=== PATIENT | male | born 1940 | race African-American/Black ===

== ENCOUNTER → 2018-06-30 | Outpatient (CLI) | payer OTHER ==
[~2018-06-30] MED LIST: AMARYL4 MG PO; CARDURA8 MG PO; CIPRO500 MG PO; DUTOPROL 50-121 EACH PO; GLUCOPHAGE1000 MG PO; KLOR-CON 10 ER10 MEQ PO; LANTUS SQ; LISINOPRIL10 MG PO; LOTREL 10-20 M1 EACH PO; LUMIGAN2.5 M1; METOPROLOL SUCC50 MG PO; PRAVACHOL40 MG PO; ZOCOR40 MG PO
== END ==
LOC: RAD 14:16
DX: J98.11 Atelectasis (principal); I25.10 Atherosclerotic heart disease of native coronary artery without angina pectoris

== ENCOUNTER 2018-07-16 22:18 | Inpatient (IN) | payer OTHER ==
[~2018-07-16] VITALS: Ht 182.9 cm; Wt 90.3 kg
--- NOTE | ~2018-07-16 | HC ---
[facility] [place] [address] CONSULTATION Name: JAMESADALBERTO Rocio Room #: 239-P [facility] IN ..#: [id number] Admission: 07/17/18 ������������������ Attend Phys: Karrie Steward MD Discharge: ������������������ Date of : 40 Report #: [id number] THIS REPORT FOR: //name// CC: Jet Steward DATE OF SERVICE: 07/17/2018 INPATIENT CONSULTATION CHIEF COMPLAINT: Shortness of breath. HISTORY OF PRESENT ILLNESS: The patient is a 77-year-old male followed by Dr. Archibald in our practice. He has a history of chronic coronary artery disease. He has not been having chest pain, but rather has been short of breath. He presented to the Emergency Room. His oxygen level was stable, but he was placed on O2 per nasal cannula. Chest x-ray showed no CHF, but there is a right pleural effusion. He denies palpitations or heart racing. He has separate complaints of weakness and fatigue. He is without orthopnea or PND. He denies syncope or presyncope. Vital signs are stable and he was admitted for further evaluation of his symptoms of shortness of breath. This morning, he is asymptomatic, vital signs are stable. PAST MEDICAL HISTORY: He has a history of chronically occluded right coronary artery based on a cardiac catheterization in 2011 and has been on medical management. He has hypertension, hyperlipidemia and diabetes. HOME MEDICATIONS: Glimepiride, pravastatin 40 mg daily, Toprol-XL 100 mg daily, lisinopril 10 mg daily, finasteride 5 mg daily, chlorthalidone 25 mg daily, potassium chloride 10 mEq daily, amlodipine and benazepril 10/20 mg daily, doxazosin 1 mg at bedtime, metformin 1 g b.i.d. and insulin. SOCIAL HISTORY: He is . There is no tobacco use. FAMILY HISTORY: Positive for heart disease. REVIEW OF SYSTEMS: EYES: Denies any blurred vision or loss of vision. [facility] [address] [place] [address] CONSULTATION Name: ADALBERTO RAMIREZ Room #: 239-P [facility] IN [facility].#: [id number] Admission: 07/17/18 ������������������ Attend Phys: Karrie Steward MD Discharge: ������������������ Date of : 40 Report #: [id number] THROAT: Denies any dysphagia. GASTROINTESTINAL: No nausea or vomiting. HEMATOLOGIC: No anemia or bleeding disorders. RENAL: No history of kidney failure. ENDOCRINE: Positive diabetes. Positive hyperlipidemia. CARDIOVASCULAR: No chest pain. Positive shortness of breath. Positive dyspnea with exertion. No orthopnea, no PND. MUSCULOSKELETAL: Positive edema. SKIN: No rashes. MUSCULOSKELETAL: No falls. PHYSICAL EXAMINATION: VITAL SIGNS: Blood pressure 134/74, pulse 73, O2 sats 97% on 2 liters, he is afebrile at 36.6. GENERAL: This is an elderly male. He is alert, in no apparent distress. HEENT: Eyes, EOMs intact. No facial asymmetry. NECK: Supple, no jugular venous distention. CARDIOVASCULAR: Regular. I cannot hear a murmur. LUNGS: Diminished breath sounds bilaterally. ABDOMEN: Soft, nontender. EXTREMITIES: There is no peripheral edema. NEUROLOGIC: There are no focal deficits. SKIN: Warm and dry. PSYCHIATRIC: The patient has appropriate mood and affect. Electrocardiogram shows sinus rhythm, normal ST segments. LABORATORY DATA: Hemoglobin is 12.8, white blood cell count is 3.3, platelet count is 15.5 thousand. D-dimer is 1.07. IMPRESSION: 1. Shortness of breath. I would rule out a pulmonary embolus with either CTA or V/Q scan. 2. Pleural effusion. I would consider him to see if this layers out or possibly could be tapped. He does not seem to be responding to diuretics. He has a normal BNP. We will check an echocardiogram to assess left ventricular function. 3. Coronary artery disease. This does not seem to be playing a role. He is asymptomatic for angina type symptoms. His troponin is normal. 4. Chronic occlusion. 5. Hypertension. Continue with aggressive medical therapy. ��������������������������������������������� ���������������������������������������� By: ��������������������������������������������� [id number] Charlie Regalado MD, FACC /nt
[2018-07-16 22:29] VITALS: BP 171/70
[2018-07-16] MEDS ORDERED: PROSCAR 5MG TABL5 MG PO (22:35)
[2018-07-16] MEDS ORDERED: CHLORTHALIDONE25 MG PO (22:36)
[2018-07-16] MEDS ORDERED: TIMOLOL MA0.25 %/52 (22:39)
[2018-07-16 23:15] LABS: ABSOLUTE NEUTROPHILS 1.6 thou/uL (1.4-8.2); BASOPHILS 0.9 % (0.0-2.0); EOSINOPHILS 2.3 % (0.0-3.0); HEMOGLOBIN 12.8 gm/dL (14.0-18.0); LYMPHOCYTES 35.4 % (24.0-44.0); MCH 24.1 pg (26.0-34.0); MCHC 32.7 g/dL (28.0-37.0); MCV 73.7 fL (80.0-100.0); MONOCYTES 11.1 % (1.0-8.0); PLATELET COUNT 204 thou/uL (150-400); POLYS 50.3 % (36.0-66.0); RBC 5.29 mil/uL (4.50-6.00); RDW 15.5 % (10.5-14.5); WBC 3.3 thou/uL (4.0-11.0)
[2018-07-16 23:22] LABS: ANION GAP 3 mmol/L (7-16); BUN 13 mg/dL (7-18); CALCIUM 9.5 mg/dL (8.5-10.1); CHLORIDE 90 mmol/L (98-107); CO2 38 mmol/L (21-32); CREATININE 0.8 mg/dL (0.7-1.3); GLUCOSE 138 mg/dL (74-106); POTASSIUM 3.2 mmol/L (3.5-5.1); SODIUM 131 mmol/L (136-145)
[2018-07-16 23:31] LABS: TROPONIN-I <0.06 ng/mL (<0.06)
[2018-07-17 06:23] VITALS: BP 120/95
[2018-07-17 07:28] VITALS: BP 134/74
[2018-07-17 08:01] VITALS: BP 152/86
--- NOTE | 2018-07-17 09:20 | EKG ---
[address] [place] [address] ELECTROCARDIOGRAM REPORT Name: ADALBERTO RAMIREZ Room #: 239-P ADM IN M.R.#: [id number] ������������������ Admission: 07/17/18 ������������������ Attend Phys: Karrie Steward MD Discharge: ������������������ Date of : 40 Report #: [id number] ����������������������������������������������������������������� [id number] THIS REPORT FOR: //name// [facility] ED Test Date: 2018-07-16 Test Time: 23:28:32 Pat Name: ADALBERTO RAMIREZ Department: Room: 239 Gender: M Reception Clerk: paulina : 1940 Requested By: Tyson Pruitt Order Number: [id number] MD: Rene Wyman Measurements Intervals Melvin Rate: 72 P: -7 FL: 213 QRS: -5 QRSD: 96 T: 21 QT: 401 QTc: 439 Interpretive Statements Sinus rhythm Borderline prolonged FL interval Left ventricular hypertrophy No previous ECG available for comparison Electronically Signed On 07-17-2018 9:20:48 [employer] by Rene Wyman [email or web address] ��������������������������������������������� <ELECTRONICALLY SIGNED> ���������������������������������������� By: Rene Wyman MD, [facility] ��������������������������������������������� 07/17/18 0920 2328 27 Rene Wyman MD, FACC /EPI
[2018-07-17 09:34] LABS: INR 1.1; PROTIME 11.1 Seconds (9.3-11.4)
--- NOTE | 2018-07-17 11:46 | NUR ---
PT OFF UNIT /C TRANSPORTERS FOR CT AND THORACENTESIS - DR. NIÑO GAVE OKAY TO BE OFF MONITORS FOR TESING
[2018-07-17 14:26] LABS: CLARITY SLIGHTLY CLOUDY; COLOR YELLOW; SOURCE CHEST; TOTAL VOLUME 1 mL
[2018-07-17 14:33] LABS: BF NUCLEATED CELLS 153; BF RBC 575
[2018-07-17 15:25] LABS: BF MACROPHAGE 20; BF NEUTROPHILS 0
[2018-07-17 20:01] VITALS: BP 141/75
[2018-07-18 00:01] VITALS: BP 147/54
--- NOTE | 2018-07-18 02:29 | NUR ---
ASSUMED CARE OF PATIENT AT 1900. VSS, AFEBRILE. UP TO CHAIR UNTIL READY FOR BED. NO S/S OF DISTRESS. AT BEDSIDE. PROGRESSING TOWARDS POC GOALS.
[2018-07-18 04:01] VITALS: BP 143/48
[2018-07-18 08:09] VITALS: BP 128/64
[2018-07-18 09:44] LABS: BODY FLUID ALBUMIN 2.1 g/dL (()); BODY FLUID AMYLASE 13 U/L (()); BODY FLUID GLUCOSE 158 mg/dL (()); BODY FLUID LDH 103 IU/L (()); BODY FLUID PROTEIN 3.2 g/dL (())
[2018-07-18] MEDS ORDERED: XALATAN2.5 ML OPHTHALMIC ×2 (10:09)
--- NOTE | 2018-07-18 12:52 | NUR ---
INITIAL ASSESSMENT: Received consult for discharge planning. KAMAR reviewed chart and spoke with nursing and attending physician. Pt was admitted from home due to pleural effusions. Pt is currenlty on O2 and was not on O2 prior to admission. Awaiting PT/OT evaluations at this time to assist with recommendations for discharge. Pt's had stated that pt may need rehab prior to returning home. KAMAR met with pt and son at bedside. Introduced role of SW. Pt is alert/orientated x 4. Pt reports that prior to admission, he was not using any DME. Pt has not had HH or been go a SNF/Rehab facility in the past. Pt has done outpatient therapy in the past, in [place]. Pt's PCP is Dr. Jet Gallagher in [place]. KAMAR discussed possible need for post-acute placement prior to returning home. Pt is agreeable. KAMAR provided pt/family with list of in-network SNFs. Pt interested in [facility], which is not on the list. KAMAR contacted [facility] liaison, who states they do not have a contract with [facility]. KAMAR spoke with pt's , Laura, via phone to provide update and discuss SNF placement. Pt's will be at the hospital this afternoon and will review SNF list. Will need insurance authorization for admission to a SNF. KAMAR is following to assist as needed with dicharge planning.
[2018-07-18 13:03] VITALS: BP 128/692
[2018-07-18 16:34] VITALS: BP 115/55
--- NOTE | 2018-07-18 16:38 | NUR ---
PT ALERT AND ORIENTED X4. AMBULATING IN HALLWAY WITH STANDBY ASSISTANCE, GAIT BELT, WALKER, AND O2. PT/OT CONSULT TODAY. PLAN FOR TRANSFER SOON TO SNF FOR REHAB. PT FAMILY PLANNING TO VISIT FACILITIES TOMORROW. CASE MANAGEMENT ASSISTING WITH DISCHARGE PLANNING. ORDER TO TRANSFER TO MED/SURG. REPORT CALLED TO [facility] RN. PT FAMILY AT BEDSIDE AND INFORMED OF TRANSFER PLANS.
--- NOTE | 2018-07-18 19:25 | NUR ---
PATIENT ARRIVED TO [facility] AT 1830, FROM ICU ROOM 239 TP ROOM 222.PATIENT WAS ORIENTED TO ROOM.PT WAS ABLE TO TRANSFER FROM W/C TO BED WITH STAND BY ASSIST WITH GAIT BELT AND WALKER.FAMILY IS AT BEDSIDE.VITALS ARE TAKEN.CALL LIGHT,PHONE, AND PERSONAL BELONGINGS ARE WITHIN REACH.
[2018-07-18 20:27] VITALS: BP 142/77
--- NOTE | 2018-07-19 07:42 | NUR ---
Pt A/OX4,denies pain on assessment but complaints of weakness. Up with AX1,GB/RW. VSS.On 02 @2L/NC,has ROMAN. No cough noted.Pt's IV was out of place,pt requested writter to dc it and not re-insert it since he's not getting any meds through it,FORMULATOR COMPOUNDER notified and ok with it. Pt sleeps on recliner,feet elevated.No distress noted.Call light/personal items within reach.
[2018-07-19 08:30] VITALS: BP 128/70
[2018-07-19 10:00] LABS: HEMATOCRIT 38.8 % (42.0-52.0); HEMOGLOBIN 12.3 gm/dL (14.0-18.0); MCH 23.8 pg (26.0-34.0); MCHC 31.7 g/dL (28.0-37.0); RBC 5.17 mil/uL (4.50-6.00); RDW 15.2 % (10.5-14.5); WBC 3.3 thou/uL (4.0-11.0)
[2018-07-19 10:09] LABS: CREATININE 0.9 mg/dL (0.7-1.3); MAGNESIUM 1.7 mg/dL (1.8-2.4); POTASSIUM 3.8 mmol/L (3.5-5.1)
[2018-07-19] MEDS ORDERED: IPRAT-ALBUT 0.5-3 ML INH (11:49)
--- NOTE | 2018-07-19 12:06 | NUR ---
SW reviewed chart and spoke with nursing and attending physician. Pt was moved to [facility] from ICU and is progressing towards goals for discharge. SW received message from pt's requesting referral to be sent to [facility]. SW spoke with Maranda at [facility], who states they do not have a male bed availbale, and do not anticipate a male bed until 07/25. SW spoke with pt's via phone to provide update. SW reviewed in-network SNF list with pt's . Pt's requested SW contact pt's dtr, Siria ([phone]) to discuss alternate SNFs. SW spoke with Siria via phone to provide update. Pt's dtr requested referral to be sent to [facility] for review. corporate planner faxed referral. Pt will need insurance authorization. Chart copy ordered. KAMAR is following to assist as needed with discharge planning.
--- NOTE | 2018-07-19 12:15 | NUR ---
DP sent initial referral to [facility], patient is medically ready, [facility] is seeking authorization, chart copy being ordered.
--- NOTE | 2018-07-19 19:16 | NUR ---
ASSUMED CARE OF PATIENT AT 0715, PATIENT ALERT AND ORIENTED X 4. PATIENT UP WITH ASSIST X 1 WITH WALKER. PATIENT DENIES PAIN THIS SHIFT. PATIENT HAS O2 AT 2 LITERS/NC IN PLACE. BLOOD SUGAR MONITORING ORDERED, INSULIN GIVEN PER S/S LOW DOSE. PATIENT WILL BE DISCHARGE TO [facility], TRANSPORTATION SETUP PER SRINIVAS AT 1730, NO TRANSPORTATION HERE AT 1900, THIS RN CALLED THE FACILITY TO ASK ABOUT TRANSPORTATION, PATIENT NOT ON LIST FOR PICKUP, SPOKE WITH THE NURSE AT THE FACILITY/SURESH, HE WILL CALL HIS MEDICAL RECEPTIONIST MEDICAL ASSISTANT TO CHECK, RECEIVED CALL BACK, TRANSPORT WILL BE HERE AT 2000. FAMILY INFORMED ABOUT DISCHARGE INFO. F/U APPOINTMENTS AFTER DISCHARGE, F/U WITH CARDIO/DR MOSES AND OWN DOCTOR IN 4 WEEKS. REPORT GIVEN TO SURESH AT [facility]. WILL CONTINUE TO MONITOR. DAUGHTER AND AT BEDSIDE.
[2018-07-19 20:19] VITALS: BP 158/76
--- NOTE | 2018-07-19 20:46 | NUR ---
Pt A/OX4,up with AX1. VSS.Temp 100.5 order obtained for Tylenol 650mg and administered before pt dc. Family at bedside. Pt discharged to [facility],transported via @2029. All personal items sent with pt. Report called earlier by Katelin to Hernandez at the facility.
== END 2018-07-19 20:30 | DRG 189 ==
LOC: ER 22:18 → ICU 07-17 01:14 → EROBS 07-17 01:14 → ICU 07-17 07:33 → ENTRNSPT 07-18 18:29 → SICU 07-18 18:58
PROVIDERS: Emergency Medicine; Internal Medicine; Internal Medicine Cardiovascular Disease; ADMIT Internal Medicine
PROC: 0W993ZZ Drainage of Right Pleural Cavity, Percutaneous Approach (ICD-10-PCS; principal; 2018-07-17)
DX: J96.01 Acute respiratory failure with hypoxia (principal); E43 Unspecified severe protein-calorie malnutrition; J90 Pleural effusion, not elsewhere classified; I10 Essential (primary) hypertension; E78.00 Pure hypercholesterolemia, unspecified; E87.6 Hypokalemia; R60.9 Edema, unspecified; I25.10 Atherosclerotic heart disease of native coronary artery without angina pectoris; E11.9 Type 2 diabetes mellitus without complications; Z87.891 Personal history of nicotine dependence; Z95.5 Presence of coronary angioplasty implant and graft; Z79.84 Long term (current) use of oral hypoglycemic drugs; Z79.4 Long term (current) use of insulin; Z82.49 Family history of ischemic heart disease and other diseases of the circulatory system
CPT/HCPCS: 10203; 15002

== ENCOUNTER 2018-08-08 15:18 | Inpatient (IN) | payer OTHER ==
[~2018-08-08] VITALS: Ht 180.3 cm; Wt 90.7 kg
[~2018-08-08 15:18] MED LIST changes: +CHLORTHALIDONE25 MG PO; +IPRAT-ALBUT 0.5-3 ML INH; +PROSCAR 5MG TABL5 MG PO; +TIMOLOL MA0.25 %/52; +XALATAN2.5 ML OPHTHALMIC
[2018-08-08 15:19] VITALS: BP 162/74
[2018-08-08 16:50] LABS: HEMATOCRIT 34.2 % (42.0-52.0); HEMOGLOBIN 11.2 gm/dL (14.0-18.0); MCH 24.3 pg (26.0-34.0); MCHC 32.8 g/dL (28.0-37.0); MCV 74.1 fL (80.0-100.0); PLATELET COUNT 160 thou/uL (150-400); RBC 4.62 mil/uL (4.50-6.00); RDW 15.4 % (10.5-14.5); WBC 2.8 thou/uL (4.0-11.0)
[2018-08-08 17:06] LABS: ANION GAP 4 mmol/L (7-16); BUN 9 mg/dL (7-18); CALCIUM 8.8 mg/dL (8.5-10.1); CHLORIDE 92 mmol/L (98-107); CO2 40 mmol/L (21-32); CREATININE 0.7 mg/dL (0.7-1.3); GLUCOSE 126 mg/dL (74-106); POTASSIUM 3.5 mmol/L (3.5-5.1); SODIUM 136 mmol/L (136-145)
[2018-08-08 17:14] LABS: TROPONIN-I <0.06 ng/mL (<0.06)
[2018-08-08 17:25] LABS: ABSOLUTE NEUTROPHILS 1.4 thou/uL (1.4-8.2); ANISOCYTOSIS 1+
[2018-08-08 17:51] VITALS: BP 161/72
[2018-08-08] MEDS ORDERED: ASPIR 8181 MG PO (17:55)
[2018-08-08] MEDS ORDERED: APAP650 PO (17:55)
[2018-08-08] MEDS ORDERED: PLAVIX 75 MG TA75 M1 PO (17:56)
[2018-08-08] MEDS ORDERED: MIRALAX17 GM PO (17:57)
[2018-08-08 18:00] VITALS: BP 165/82
[2018-08-08 18:46] VITALS: BP 168/77
[2018-08-09 00:09] VITALS: BP 186/96
[2018-08-09 04:34] VITALS: BP 156/86
[2018-08-09 06:20] LABS: ANION GAP 0 mmol/L (7-16); BUN 8 mg/dL (7-18); CALCIUM 8.5 mg/dL (8.5-10.1); CHLORIDE 92 mmol/L (98-107); CO2 43 mmol/L (21-32); CREATININE 0.8 mg/dL (0.7-1.3); GLUCOSE 153 mg/dL (74-106); POTASSIUM 3.1 mmol/L (3.5-5.1); SODIUM 135 mmol/L (136-145); TROPONIN-I <0.06 ng/mL (<0.06)
--- NOTE | 2018-08-09 06:43 | NUR ---
ASSUMED CARE OF PT WITH ADMISSION TO UNIT. PT ABLE TO ANSWER ADMISSION ASSMT QUESTIONS. SBP HAS BEEN RUNNING HIGH (150-180'S) OVER NOC, SPOKE TO SAP PP CONSULTANT, COREG GIVEN EARLY. OTHER MEDS ORDERED FOR TODAY. REQUESTED GLUCOSE LEVEL CHECKED SEVERAL TIMES OVER NOC, PROVIDED, RANGING FROM 110-130. C/O SOA, VS CHECKED, O2 SAT'S 95-100% ON 2L O2 VIA NC. REQUESTED REPOSITIONING SEVERAL TIMES TO HELP BREATHE, PROVIDED WITH PARTIAL RELIEF. PROGRESSING TOWARDS POC GOALS.
[2018-08-09 07:43] VITALS: BP 138/77
[2018-08-09 11:28] VITALS: BP 159/84
--- NOTE | 2018-08-09 13:40 | NUR ---
ASSESSMENT: CM REVIEWED CHART AND MET WITH PATIENT AT THE BEDSIDE. PT WAS ADMITTED WITH [facility]. PT HAD RECENT CVA AND WAS AT [facility]. PT REPORTS THAT HE LIVES AT HOME WITH HIS . PT REPORTS IF HE ENTERS THROUGH THE GARAGE (WHICH IS EASIEST FOR HIM) THEN HE HAS ABOUT 11 STEPS WITH HANDRAILS TO THE MAIN LEVEL. PT REPORTS IF HE ENTERS THROUGH THE FRONT DOOR HE HAS ABOUT 8 STEPS WITH HANDRAILS. PT REPORTS THAT HE AMBULATES USING A WALKER AND CANE. PT REPORTS HE WAS RECENTLY STARTED ON OXYGEN THROUGH [facility] AND IS ON 2L CONTINUOUS OXYGEN. PT REPORTS THAT HE HAS HH AND IS SET UP THROUGH [facility]. CM NOTIFIED [facility] THAT PATIENT WAS ADMITTED AND REQUESTED [facility] APPRENTICE TO SEND A REFERRAL TO [facility]. CM WILL CONTINUE TO FOLLOW TO ASSIST NEEDED. PT IS HOPEFUL TO RETURN HOME WITH HH ONCE STABLE.
--- NOTE | 2018-08-09 14:03 | NUR ---
dp faxed initial referral to [facility], patient was with service with them prior to hospitalization, patient will continue after dc.
[2018-08-09 16:41] VITALS: BP 180/87
--- NOTE | 2018-08-09 17:01 | EKG ---
[place] [address] [facility] [place] [address] ELECTROCARDIOGRAM REPORT Name: ADALBERTO RAMIREZ Room #: 354-P ADM IN M.R.#: [id number] ������������������ Admission: 08/08/18 ������������������ Attend Phys: Shubham Trivedi Discharge: ������������������ Date of : 40 Report #: [id number] ����������������������������������������������������������������� [id number] THIS REPORT FOR: //name// [facility] ED Test Date: 2018-08-08 Test Time: 16:42:48 Pat Name: ADALBERTO RAMIREZ Department: Room: 354 Gender: M Accounting Clerk: GERARDO : 1940 Requested By: Juan Alonzo Order Number: [id number] MD: Rene Wyman Measurements Intervals Cisco Rate: 68 P: -2 MN: 219 QRS: -1 QRSD: 82 T: 28 QT: 398 QTc: 424 Interpretive Statements Sinus rhythm Borderline prolonged MN interval Compared to ECG 07/16/2018 23:28:32 No significant changes Electronically Signed On 08-09-2018 17:01:50 CDT by Rene Wyman [email or web address] ��������������������������������������������� <ELECTRONICALLY SIGNED> ���������������������������������������� By: Rene Wyman MD, [facility] ��������������������������������������������� 08/09/18 1701 41 41 Rene Wyman MD, FAC /EPI
--- NOTE | 2018-08-09 20:24 | NUR ---
ASSUMED CARE OF PT AT APPROX 0700. PT IS ALERT AND ORIENTED X4, MONITORED ON TELE AND ABLE TO MAINTAIN 02 SAT >90 ON 2L NC. PT DOES COMPLAIN OF SOA. BREATHING LABORED AT TIMES. PT REQUESTS BIPAP DURING CTA HE STATES THAT HE CANNOT BREATH ONCE HE IS LAYING ON HIS BACK. CALLED RT TO SET UP BIPAP IN CTA. WAS ABLE TO PERFORM CTA. ASSESSMENT CHARTED. PT DENIES PAIN. VSS WILL CONT TO MONITOR.
[2018-08-10 04:39] LABS: HEMOGLOBIN 11.6 gm/dL (14.0-18.0); MCH 23.9 pg (26.0-34.0); MCHC 32.2 g/dL (28.0-37.0); MCV 74.4 fL (80.0-100.0); RBC 4.84 mil/uL (4.50-6.00); RDW 15.6 % (10.5-14.5); WBC 2.6 thou/uL (4.0-11.0)
--- NOTE | 2018-08-10 04:45 | NUR ---
ASSUMED CARE OF PT AT 1900. A&Ox4, COOPERATIVE. SR W/ PVCs ON TELE. BP CONTINUES TO BE ELEVATED W/ SBP 180s, MEDS GIVEN ORDERED, MONITORING. C/O SOA, MAINTAINING O2 SAT'S > 95% ON 2-3L O2 NC. REQUESTED SITTING AT SIDE OF BED AND IN SLEEPING IN RECLINER TO BREATHE, PROVIDED W/ PARTIAL RELIEF. STEADY DURING TRANSFERS, BECOMES SOA. EDEMA IN BLEs BETTER THAN PREVIOUS NOC SHIFT, 2+ NONPITTING. PT REFUSES DIABETIC MEDS, STATES HE WANTS HIS GLUCOSE BETWEEN 120-130 BECAUSE IT DROPS QUICKLY AND OFTEN. CURRENTLY RESTING. PROGRESSING TOWARDS POC GOALS.
[2018-08-10 04:46] LABS: CALCIUM 9.1 mg/dL (8.5-10.1); MAGNESIUM 1.8 mg/dL (1.8-2.4); POTASSIUM 3.7 mmol/L (3.5-5.1)
[2018-08-10 04:50] VITALS: BP 142/86
[2018-08-10 05:13] LABS: FOLIC ACID 20.8 ng/mL (8.6-58.9)
[2018-08-10 05:21] LABS: BE(vivo) 13.8 mmol/L (-2 to +3); HCO3 41.1 mmol/L (22.0-26.0); PO2 78.6 mmHg (80.0-100.0); pH 7.412 (7.360-7.450); sO2 95.3 % (92.0-98.0)
[2018-08-10 05:22] LABS: PCO2 66.1 mmHg (35.0-45.0)
[2018-08-10 07:35] VITALS: BP 143/69
--- NOTE | 2018-08-10 08:17 | HC ---
[facility] [place] [address] CONSULTATION Name: ADALBERTO RAMIREZ Room #: 354-P [facility] IN M.R.#: [id number] Admission: 08/08/18 ������������������ Attend Phys: Shubham Trivedi Discharge: ������������������ Date of : 40 Report #: [id number] THIS REPORT FOR: //name// CC: Jet Horn NO PCP DATE OF SERVICE: 08/09/2018 HISTORY OF PRESENT ILLNESS: The patient is a 77-year-old black male who I was asked to see in the hospital after he complained of being short of breath. The patient has an extensive past medical history. He had a previous stent placed in his right coronary artery at [facility] in 1995. Repeat heart catheterization in 2011 showed the right coronary artery was chronically occluded. He was actually just recently admitted to [facility] with shortness of breath and edema. He was seen by my partner, Dr. Regalado. He had a recent echocardiogram that showed akinesis of the basal inferior wall with an estimated ejection fraction of 50-55%. He was discharged to a rehab hospital. While at the Rehab Hospital, he apparently had an episode of slurred speech. He was admitted to [facility] and received TPA. He was started on Plavix and discharged. The patient just discharged home a couple of days ago. He was brought back to the hospital yesterday complaining of shortness of breath. I was asked to see him for further evaluation and treatment. He complains being fatigued and short of breath. He denies any cough or fever. He has been weak. He has had swelling of his feet. He denied any leg pain. He denies chest pain, palpitations, syncope. He does not snore at night. PAST MEDICAL HISTORY: He has had no other major surgical procedures. He does have a history of hypertension, diabetes, and hyperlipidemia. MEDICATIONS: Consists of aspirin, chlorthalidone, Plavix, Cardura, Pepcid, Proscar, glimepiride. He is on a DuoNeb inhaler, lisinopril, metformin, metoprolol, potassium, pravastatin, eye drops. ALLERGIES: He has no known drug allergies. FAMILY HISTORY: Negative for heart disease. SOCIAL HISTORY: He is . He and his live in [place], [place]. 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 No smoking, no alcohol abuse. He ambulates with a cane. REVIEW OF SYSTEMS: He has had no history of stroke, peptic ulcer disease, liver disease, kidney disease, cancer, psychiatric illness, chronic skin condition. [facility] [address] [place] [address] CONSULTATION Name: ADALBERTO RAMIREZ Room #: 354-P [facility]..#: [id number] Admission: 08/08/18 ������������������ Attend Phys: Shubham Trivedi Discharge: ������������������ Date of : 40 Report #: [id number] PHYSICAL EXAMINATION: GENERAL: Elderly male, lying in bed, he appeared in no distress. VITAL SIGNS: He had blood pressure 160/70, his pulse is 70, he is afebrile. HEENT: He was anicteric. Conjunctivae pink. Mucous members moist. NECK: Neck veins do not appear distended. No carotid bruits. CHEST: Revealed decreased breath sounds at bases. CARDIOVASCULAR: Regular rate and rhythm. ABDOMEN: Soft. EXTREMITIES: Had trace edema up to the mid tibial area. Dorsalis pedis pulse cannot be palpated. SKIN: Cool and dry. NEUROLOGIC: Nonfocal. LYMPH: No adenopathy. MUSCULOSKELETAL: No joint effusion. LABORATORY DATA: ECG shows a sinus rhythm, no significant ST or T-wave change. His workup, he had a CT scan of the chest using a PE protocol today that showed atelectasis, no pulmonary embolus, small pleural effusions. Of note, the patient did have a thoracentesis last month. Venous duplex scan of his legs showed no DVT. His chest x-ray yesterday showed atelectasis, normal heart size, calcified aortic arch. His sodium is 135, potassium is only 3.1. His BUN is 8, creatinine is 0.8. Troponin 0.06. BNP was only 47. White blood cell count 2.8, hemoglobin 11.2, platelet count 160,000. IMPRESSION AND RECOMMENDATIONS: 1. Acute on chronic diastolic heart failure. Recommend Lasix. 2. Diabetes. 3. Coronary artery disease. No recent angina. Since the patient is on Plavix, I would not recommend aspirin. 4. Hypertension. I would recommend taking the patient off of amlodipine because of diastolic heart failure. 5. Hyperlipidemia. The patient is on a statin drug. 6. Recent stroke treated with TPA. I would continue Plavix. ��������������������������������������������� <ELECTRONICALLY SIGNED> ���������������������������������������� By: Emeka Archibald MD, FACC ��������������������������������������������� 08/10/18 0817 1705 2218 Emeka Archibald MD, FACC /nt
[2018-08-10 11:05] VITALS: BP 135/68
--- NOTE | 2018-08-10 14:12 | NUR ---
dp sending referral to [facility] and requesting authorization. DP included PT notes, awaiting OT notes, (will send OT notes from today when they are in, they have been ordered).
[2018-08-10 15:30] VITALS: BP 150/82
--- NOTE | 2018-08-10 15:33 | NUR ---
on-going assessment: cm reviewed chart and met with patient and his at the bedside. pt reported he feels he would benefit from snf but states that when he was [facility] his insurance denied snf. cm discussed since he was readmitted and if he qualifies with pt/ot for snf cm can seek auth to see if they will approved. pt and wanted referral sent to [facility]. cm notified habitat conservation planner to send referral.
[2018-08-10 19:50] VITALS: BP 151/73
[2018-08-11 05:01] LABS: HEMATOCRIT 35.6 % (42.0-52.0); HEMOGLOBIN 11.6 gm/dL (14.0-18.0); MCH 24.2 pg (26.0-34.0); MCHC 32.7 g/dL (28.0-37.0); RBC 4.81 mil/uL (4.50-6.00); RDW 15.4 % (10.5-14.5); WBC 2.6 thou/uL (4.0-11.0)
[2018-08-11 05:22] LABS: CHOLESTEROL 145 mg/dL (<200); HDL CHOLESTEROL 62 mg/dL (>40); LDL CHOLESTEROL 78 mg/dL (<100); TC:HDL 2.3 Ratio (Not establshd); TRIGLYCERIDE 27 mg/dL (<150); VLDL 5 mg/dL (<40)
[2018-08-11 05:26] LABS: ALBUMIN 3.2 g/dL (3.4-5.0); CALCIUM 8.7 mg/dL (8.5-10.1); CREATININE 0.9 mg/dL (0.7-1.3); MAGNESIUM 2.1 mg/dL (1.8-2.4); POTASSIUM 3.7 mmol/L (3.5-5.1); TOTAL BILIRUBIN 0.4 mg/dL (<0.1-1.0); TOTAL PROTEIN 7.2 g/dL (6.4-8.2)
[2018-08-11 05:32] LABS: SERUM ASSESSMENT Clear
[2018-08-11 07:41] VITALS: BP 149/85
--- NOTE | 2018-08-11 07:45 | NUR ---
ASSUMED CARE OF PT AT 1900. A&Ox4, COOPERATIVE. VS STABLE, BP WAS LOWER THAN PREVIOUS SERVICE DELIVERY ANALYST DOCUMENTED. CONTINUES TO FEEL SOA. SLEPT SITTING UP IN RECLINER. STATED HE IS FEELING BETTER BUT FEELS HE NEEDS TO BE HERE A COUPLE MORE DAYS BEFORE LEAVING. PROGRESSING TOWARDS POC GOALS.
[2018-08-11] MEDS ORDERED: AUGMENTIN 875-1 EACH PO (10:01)
[2018-08-11] MEDS ORDERED: CARVEDILOL12.5 MG PO (10:02)
[2018-08-11] MEDS ORDERED: PREDNISONE 20 M20 MG PO (10:02)
[2018-08-11] MEDS ORDERED: SPIRONOLACTONE25 M1 PO (10:03)
--- NOTE | 2018-08-11 11:01 | NUR ---
PATIENT WILL BE DISCHARGED TODAY TO HOME. HE STATES HE FEELS MUCH BETTER. DENIES PAIN. EDEMA TO BLE SIGNIFICANTLY IMPROVED. HE IS ALERT ORIENTED X4. VSS.
[2018-08-11 11:04] VITALS: BP 149/85
[2018-08-11 11:24] VITALS: BP 139/62
--- NOTE | 2018-08-11 11:55 | NUR ---
on-going assessment: cm left vm with admissions at [facility] TO SEE WHERE THEY ARE WITH THE INSURANCE AUTH PROCESS AND THAT PATIENT IS STABLE FOR DISCHARGE TODAY PENDING INSURANCE AUTH. CM REQUESTED PT/OT TO SEE PATIENT. CM WILL CONTINUE TO FOLLOW TO ASSIST NEEDED.
--- NOTE | 2018-08-11 13:59 | NUR ---
DISCHARGE PLANNING. ANTICIPATED DISCHARGE TODAY, [facility]. [facility]. PENDING INSURANCE AUTH. UPDATED PT AND OT CLINICAL INFORMATION FAXED TO [facility]UD[facility], FOR INSURANCE AUTH PROCESS. [facility] TO NOTIFY CM ONCE AUTH OBTAINED. FOLLOWING TO ASSIST.
[2018-08-11 15:57] VITALS: BP 145/83
[2018-08-11 20:20] VITALS: BP 133/53
[2018-08-12 04:50] VITALS: BP 149/74
[2018-08-12 05:00] LABS: HEMATOCRIT 34.2 % (42.0-52.0); HEMOGLOBIN 11.2 gm/dL (14.0-18.0); MCH 24.3 pg (26.0-34.0); MCHC 32.9 g/dL (28.0-37.0); MCV 73.9 fL (80.0-100.0); RBC 4.62 mil/uL (4.50-6.00); RDW 15.4 % (10.5-14.5); WBC 5.1 thou/uL (4.0-11.0)
[2018-08-12 05:10] LABS: ANION GAP < 0 mmol/L (7-16); BUN 28 mg/dL (7-18); CALCIUM 8.8 mg/dL (8.5-10.1); CHLORIDE 92 mmol/L (98-107); CO2 42 mmol/L (21-32); GLUCOSE 140 mg/dL (74-106); MAGNESIUM 1.8 mg/dL (1.8-2.4); POTASSIUM 3.3 mmol/L (3.5-5.1); SODIUM 133 mmol/L (136-145)
--- NOTE | 2018-08-12 06:11 | NUR ---
ASSUMED CARE OF PT AT 1900. A&Ox4, COOPERATIVE AND PLEASANT. VS STABLE. STATED HE FELT LIKE HE WAS BREATHING OK ON 2L O2 NC. NOT SOA PREVIOUS NIGHT DURING TRANSFERS AND MOVEMENTS. SLEPT IN RECLINER OVER NOC. STATED HE THINKS HE URINATED LESS AFTER SWITCHING LASIX FROM IV TO PO SO HE IS TRYING TO DRINK MORE TO VOID. ENCOURAGED TO FOLLOW FLUID RESTRICTIONS. EDEMA APPEARS THE SAME PREVIOUS NOC. STATED HE WANTS TO STAY LONGER TO GET STRONGER AND BE ABLE TO WALK MORE BEFORE GOING HOME. NO ACUTE DISTRESS. PROGRESSING TOWARDS POC GOALS.
[2018-08-12 07:55] VITALS: BP 140/76
[2018-08-12 11:22] VITALS: BP 145/76
[2018-08-12 15:18] VITALS: BP 137/60
--- NOTE | 2018-08-12 15:18 | NUR ---
PATIENT UP ON CHAIR. PREFERS TO SIT ON CHAIR THAN LIE ON BED. RESPIRAIONS ARE NOT LABORED AT REST BUT LABORED WITH SMALL EXERTION. CONT ON LASIX AND HAS HAD GOOD URINE OUTPUT. HERE VISITING. WILL CONT WITH PLAN OF CARE.
[2018-08-12 20:05] VITALS: BP 144/69
[2018-08-13 04:10] VITALS: BP 135/73
[2018-08-13 04:55] LABS: HEMATOCRIT 34.9 % (42.0-52.0); HEMOGLOBIN 11.5 gm/dL (14.0-18.0); MCH 24.4 pg (26.0-34.0); MCHC 32.9 g/dL (28.0-37.0); RBC 4.72 mil/uL (4.50-6.00); RDW 15.3 % (10.5-14.5); WBC 4.9 thou/uL (4.0-11.0)
[2018-08-13 05:05] LABS: BUN 31 mg/dL (7-18); CALCIUM 8.9 mg/dL (8.5-10.1); CHLORIDE 91 mmol/L (98-107); GLUCOSE 121 mg/dL (74-106); MAGNESIUM 1.8 mg/dL (1.8-2.4); POTASSIUM 3.3 mmol/L (3.5-5.1); SODIUM 137 mmol/L (136-145)
[2018-08-13 05:11] LABS: CO2 > 45 mmol/L (21-32)
--- NOTE | 2018-08-13 05:31 | NUR ---
ASSUMED PT CARE AROUND 1900. A&OX4. DENIES ANY PAIN. MILD SOA W/ EXERTION. UP TO BSC FOR BOWEL MOVEMENT. USES URINAL INDEPENDENTLY. PT SLEPT PART OF THE NIGHT. RESP EVEN AND UNLABORED. PT REQUESTED TO SLEEP IN CHAIR DURING THE NIGHT. FALL PRECAUTIONS IN PLACE. PROGRESSING TOWARD POC GOALS. WILL CONTINUE TO MONITOR FURTHER.
[2018-08-13 07:34] VITALS: BP 128/56
[2018-08-13 11:13] VITALS: BP 151/74
--- NOTE | 2018-08-13 13:12 | NUR ---
THIS NURSE SPOKE TO DR VELAZQUEZ ABOUT STOPING TELEMETRY AND DR VELAZQUEZ AGREED TO DO IT.
[2018-08-13 15:23] VITALS: BP 151/63
--- NOTE | 2018-08-13 17:17 | NUR ---
care of pt assumed this am @ ~0700. pt noted to be in his chair, he stated he sleeps best in his chair because he can breathe better there than in the bed. pt on o2 @ 3lt nc, baseline on home oxygen is 2lt nc. pt co soa w/ exertion and when lying in bed less than a 45 degree angle. pt w/ a fair to good appetite for food (but prefers to eat every 6 hours vs every 4 hours (as the meals are served here)). pt refused his metformin & glimepride this am. pt's at bs for ~ 4 hours this afternoon. pt anticipating dc to [facility] Tuesday or Tuesday. report give to Riartie/rn in [facility] now. call placed to pt's to notify transfer to room 224 within the hour.
[2018-08-13 17:45] VITALS: BP 145/82
--- NOTE | 2018-08-13 18:17 | NUR ---
PATIENT CAME DOWN FROM 3W 354 TO ROOM 224. WAS MADE COMFORTABLE IN ROOM.
--- NOTE | 2018-08-14 05:46 | NUR ---
PATIENTS CARES WERE ASSUMED AT SHIFT CHANGE. PATIENT WAS ASSESSED ANDMEDS WERE PASSED. HOURLY ROUNDING WAS DONE. PATIENT DID GET CONCERNED ABOUT HIMSELF ABOUT 0300 THIS SHIFT. HE STATED HE FELT LIKE BLOOD SUGAR WAS TO LOW. ACCU CHECK WAS DONE THE RESULTS WERE 120. NO INSULIN WAS GIVEN ON THIS SHIFT PER DOCTORS ORDERS. PATIENT WAS GIVEN A 240CC CUP OF OJ AND PEANUT BUTTER AND GRAM CRACKERS. PATIENT DID GO BACK TO SLEEP. PATIENT ALSO HAD TWO LARGE WATERY STOOLS THIS SHIFT. PATIENT DID SLEEP IN THE RECLYNER CHAIR AND THE CHAIR ALARM IS ON.
[2018-08-14 07:37] VITALS: BP 100/59
--- NOTE | 2018-08-14 11:16 | NUR ---
DISCHARGE PLANNING. DP CALL[facility] AND [facility] IF [facility] HAVE RECEIVED AUTHORIZATION YET? dp left return phone numbers for [facility] to cb. DP will send update therapy when in.
[2018-08-14 14:45] VITALS: BP 121/69
--- NOTE | 2018-08-14 17:04 | NUR ---
ON-GOING ASSESSMENT: RAJI WAS NOTIFIED THAT INSURANCE HAS DENIED SNF FOR PATIENT ([facility] NOTIFIED USE AT 1630). SHE STATES WE HAVE 2 HOURS TO COMPLETE A PEER TO PEER BY CALLING [phone]. RAJI NOTIFIED DR. BLANCO AT 1638, NO RESPSONCE AT THIS TIME (1708) THAT A PEER TO PEER CAN BE COMPLETED. IF NOT PATIENT CAN DISCHARGE HOME WITH HH. RAJI NOTIFIED BEDSIDE RN THAT IF PATIENT DISCHARGES HOME WITH HH THAT [facility] HAS ACCEPTED. RAJI WILL CONTINUE TO FOLLOW TO ASSIST NEEDED.
[2018-08-14 17:10] VITALS: BP 149/85
--- NOTE | 2018-08-14 19:34 | NUR ---
ASSUMED CARE OF PATIENT AT 0715, PATIENT ALERT AND ORIENTED X 4. PATIENT DENIES PAIN THIS SHIFT. PATIENT HAS O2 AT 2 LITERS/NC IN PLACE. PATIENT UP WITH ASSIST X 1 WITH GAIT BELT AND WALKER. PATIENT HAS 1+ SWELLING TO LOWER EXTREMITIES. PATIENT HAS RIGHT UPPER ARM IV IN PLACE. PATIENT VOIDS PER URINAL, [facility] AT 1400[facility] [place] MAY DISCHARGE TOMORROW TO HOME WITH HOMEHEALTH. JOAN/ STATES INSURANCE DID NOT APPROVE FOR SKILLED. WILL CONTINUE TO MONITOR.
--- NOTE | 2018-08-15 03:36 | NUR ---
Pt A/OX4.VSS.Denies pain on assessment. Up with AX1. Pt prefers to sleep on the reclining chair d/t SOA,requested oxygen to be titrated up to 3L/NC at HS stating he is SOA sats 99% encouraged to do deep breathing. Voiding in the urinal with episodes of incontinence noted. Pt just had a soft medium BM,pudding provided and pt went back to sleep. Fall precautions in place will continue to monitor pt.
[2018-08-15 09:11] VITALS: BP 141/80
--- NOTE | 2018-08-15 09:43 | NUR ---
Patient will discharge today with [facility]. [employer] will sent HH orders and dc paperwork to [facility] and call them to let them know of dc.
[2018-08-15 09:56] VITALS: BP 141/80
--- NOTE | 2018-08-15 10:33 | NUR ---
ON-GOING Assessment: RAJI REVIEWED CHART AND MET WITH PATIENT AND HIS AT THE BEDSIDE. CM NOTIFIED THEM THAT PATIENTS INSURANCE DID NOT APPROVE FOR SNF. PLANS ARE FOR PATIENT TO RETURN HOME WITH [facility] TODAY. CM NOTIFIED RESOURCE RECOVERY SPECIALIST TO FAX D/C ORDERS TO HH. RAJI SPOKE WITH PATIENT AND HE WANTED TO KING HOW MUCH HIS NEW RX WOULD COST IN [facility] OUT[facility]. RAJI SPOKE WITH OUTPATIENT PHARMACY AND MEDS COST 13.40 PT WAS AGREEABLE TO GET HIS MEDS FILLED HERE.
--- NOTE | 2018-08-15 14:03 | NUR ---
ASSUMED CARE OF PATIENT AT 0715, PATIENT ALERT AND ORIENTED X 4. PATIENT UP WITH ASSIST X 1 WITH WALKER AND GAIT BELT. PATIENT DENIES PAIN AT THIS TIME. PATIENT HAD IV RIGHT UPPER ARM, REMOVED PRIOR TO DISCHARGE. PATIENT HAS O2 AT 2 LITERS/NC IN PLACE. PATIENT WORKED WITH PHYSICAL THERAPY TODAY. DR BLANCO HERE THIS AM, PATIENT WILL DISCHARGE TO HOME WITH HOME HEALTH. AT BEDSIDE. ALL DISCHARGE PAPERWORK WILL BE SENT WITH THE PATIENT, AND ALL PERSONAL BELONGINGS SENT WITH PATIENT.
== END 2018-08-15 16:08 | disposition home health service (06) | DRG 291 ==
LOC: ER 15:18 → EROBS 17:28 → 3W 17:28 → SICU 08-13 17:46 → ENTRNSPT 08-15 15:32 → EDTRNSPTSTS 08-15 15:34 → SICU 08-15 16:08
PROVIDERS: Emergency Medicine; Internal Medicine; Internal Medicine Cardiovascular Disease; Nurse Practitioner Acute Care; Nurse Practitioner Family; ADMIT Hospitalist
DX: I11.0 Hypertensive heart disease with heart failure (principal); J18.9 Pneumonia, unspecified organism; J96.21 Acute and chronic respiratory failure with hypoxia; J96.22 Acute and chronic respiratory failure with hypercapnia; E43 Unspecified severe protein-calorie malnutrition; I69.351 Hemiplegia and hemiparesis following cerebral infarction affecting right dominant side; I50.33 Acute on chronic diastolic (congestive) heart failure; I25.10 Atherosclerotic heart disease of native coronary artery without angina pectoris; E11.9 Type 2 diabetes mellitus without complications; E78.00 Pure hypercholesterolemia, unspecified; E87.6 Hypokalemia; G47.33 Obstructive sleep apnea (adult) (pediatric); N40.0 Benign prostatic hyperplasia without lower urinary tract symptoms; I65.29 Occlusion and stenosis of unspecified carotid artery; D64.9 Anemia, unspecified; D72.819 Decreased white blood cell count, unspecified; I27.20 Pulmonary hypertension, unspecified; K59.00 Constipation, unspecified; J84.10 Pulmonary fibrosis, unspecified; E78.5 Hyperlipidemia, unspecified; Z68.27 Body mass index [BMI] 27.0-27.9, adult; Z95.5 Presence of coronary angioplasty implant and graft; Z79.82 Long term (current) use of aspirin; Z79.84 Long term (current) use of oral hypoglycemic drugs; Z79.899 Other long term (current) drug therapy
CPT/HCPCS: 10879; 15002

== ENCOUNTER 2019-01-09 10:07 | Inpatient (IN) | payer OTHER ==
[~2019-01-09] VITALS: Ht 182.9 cm; Wt 100.2 kg
[~2019-01-09 10:07] MED LIST changes: +APAP650 PO; +ASPIR 8181 MG PO; +AUGMENTIN 875-1 EACH PO; +CARVEDILOL12.5 MG PO; +MIRALAX17 GM PO; +PLAVIX 75 MG TA75 M1 PO; +PREDNISONE 20 M20 MG PO; +SPIRONOLACTONE25 M1 PO
[2019-01-09 10:08] VITALS: BP 178/76
[2019-01-09 10:20] LABS: HEMATOCRIT 25.6 % (42.0-52.0); HEMOGLOBIN 8.5 gm/dL (14.0-18.0); MCH 26.1 pg (26.0-34.0); MCHC 33.1 g/dL (28.0-37.0); MCV 78.6 fL (80.0-100.0); PLATELET COUNT 135 thou/uL (150-400); RBC 3.25 mil/uL (4.50-6.00); WBC 2.8 thou/uL (4.0-11.0)
[2019-01-09 10:22] LABS: URINE BILIRUBIN NEGATIVE (Negative); URINE BLOOD TRACE (Negative); URINE CLARITY CLEAR; URINE COLOR YELLOW; URINE GLUCOSE-RANDOM* NEGATIVE (Negative); URINE KETONES NEGATIVE (Negative); URINE LEUKOCYTES NEGATIVE (Negative); URINE NITRITE NEGATIVE (Negative); URINE PROTEIN (DIPSTICK) NEGATIVE (Negative); URINE SPECIFIC GRAVITY 1.015 (1.005-1.035); URINE UROBILINOGEN 0.2 E.U./dl (0.2-1.0)
[2019-01-09 10:26] LABS: ANION GAP < 0 mmol/L (7-16); BUN 18 mg/dL (7-18); CHLORIDE 86 mmol/L (98-107); CO2 43 mmol/L (21-32); GLUCOSE 152 mg/dL (74-106); POTASSIUM 4.1 mmol/L (3.5-5.1); SODIUM 126 mmol/L (136-145)
[2019-01-09 10:33] LABS: ALBUMIN 3.1 g/dL (3.4-5.0); SGOT 14 U/L (15-37); SGPT 11 U/L (30-65); TOTAL BILIRUBIN 0.3 mg/dL (<0.1-1.0); TOTAL PROTEIN 6.1 g/dL (6.4-8.2)
[2019-01-09] MEDS ORDERED: CARVEDILOL12.5 MG PO (10:37)
[2019-01-09] MEDS ORDERED: METOLAZONE 2.52.5 M1 PO (10:42)
[2019-01-09 10:52] LABS: ABSOLUTE NEUTROPHILS 1.2 thou/uL (1.4-8.2)
[2019-01-09 10:54] LABS: ANISOCYTOSIS SLIGHT
[2019-01-09 12:05] VITALS: BP 176/87
[2019-01-09 12:17] LABS: OBSERVED RETIC COUNT 0.78 % (0.6-2.6)
[2019-01-09 12:26] LABS: % SATURATION 23 % (20-39); IRON 44 ug/dL (65-175); TIBC 191 ug/dL (250-450)
--- NOTE | 2019-01-09 12:33 | NUR ---
REPORT GIVEN TO SENDY AVILEZ. STATES ROOM IS READY.
[2019-01-09 12:45] VITALS: BP 176/87
[2019-01-09 12:54] LABS: TSH 1.218 uIU/mL (0.358-3.740)
[2019-01-09 13:23] VITALS: BP 179/81
[2019-01-09 15:46] VITALS: BP 145/74
--- NOTE | 2019-01-09 17:30 | EKG ---
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: arlet : 1940 Requested By: Tyson Pruitt Order Number: [id number] MD: Rene Wyman Measurements Intervals [place] Rate: 65 P: 28 NV: 245 QRS: -3 QRSD: 91 T: 13 QT: 390 QTc: 406 Interpretive Statements Sinus rhythm Prolonged NV interval Left ventricular hypertrophy Compared to ECG 08/08/2018 16:42:48 Left ventricular hypertrophy now present Electronically Signed On 01-09-2019 17:30:18 CDT by Rene Wyman [email or web address] <ELECTRONICALLY SIGNED> By: Rene Wyman MD, [facility] 01/09/19 1730 1007 1007 Rene Wyman MD, FAC /EPI
--- NOTE | 2019-01-09 17:52 | NUR ---
78 YO MALE ADMITTED TO 417 BY CART FROM ED. A&OX4, IV INTACT IN L AC. NON AMBULATORY AT THIS TIME. INCONT IF BLADDER. EDEMA NOTED THROUGHOUT BODY, RIGHT SIDE WEAKNESS NOTED FROM PREVIOUS CVA. HARRIS CATH WITH 18FR. PLACED WITH LIGHT PINK TINGE IN URINE, PT WAS STAIGHT CATHED IN ED FOR UA. BISCODY SUPPOS.FIVEN ORDERED.PT ORIENTED TO ROOM/ CALL LIGHT. SPOUSE AT BEDSIDE.
[2019-01-09 18:51] VITALS: BP 190/88
--- NOTE | 2019-01-10 00:46 | NUR ---
ASSESSMENT COMPLETED.PT WITH GEN EDEMA,LASIX ADMINISTERED ORDERED.PT HAD A BM THIS SHIFT STILL GETTING STOOL SOFTNER.REPOSITIONED WHILE IN BED.PT ON 2L/NC BREATHING UNLABORED.PT NPO AT THIS TIME FOR A PROCEDURE IN THE AM.FALL PRECAUTIONS IN PLACE,CALL LIGHT WITHIN REACH.
[2019-01-10 04:11] VITALS: BP 157/73
[2019-01-10 06:07] LABS: ABSOLUTE NEUTROPHILS 2.4 thou/uL (1.4-8.2); BASOPHILS 1.2 % (0.0-2.0); EOSINOPHILS 1.1 % (0.0-3.0); HEMATOCRIT 29.4 % (42.0-52.0); HEMOGLOBIN 9.9 gm/dL (14.0-18.0); LYMPHOCYTES 20.2 % (24.0-44.0); MCH 26.4 pg (26.0-34.0); MCHC 33.6 g/dL (28.0-37.0); MCV 78.5 fL (80.0-100.0); MONOCYTES 10.8 % (1.0-8.0); PLATELET COUNT 160 thou/uL (150-400); POLYS 66.7 % (36.0-66.0); RBC 3.74 mil/uL (4.50-6.00); WBC 3.5 thou/uL (4.0-11.0)
[2019-01-10 06:37] LABS: ALBUMIN 3.2 g/dL (3.4-5.0); CALCIUM 8.9 mg/dL (8.5-10.1); CREATININE 0.8 mg/dL (0.7-1.3); PHOSPHORUS 3.7 mg/dL (2.5-4.9)
[2019-01-10 07:37] VITALS: BP 150/66
--- NOTE | 2019-01-10 14:36 | NUR ---
PT A&OX3. IV INTACT IN L AC. PT HAS BEEN NPO SINCE [place] EXCEPT FOR BP MEDS. TRANSFERS WITH MAX ASSIST WITH WALKER, GAIT BELT. REPORT RECEIVED FROM GI THAT EGD WAS COMPLETE AND PT WILL BE RETURNING, SPOUSE AT BEDSIDE. WILL CONT POC.
--- NOTE | 2019-01-10 15:10 | NUR ---
Case opened to follow for dc planning. Pt just back from EGD. Retail Office Associate visited with the pt's spouse regarding dc planning needs. Pt is known to cm from previous visits this year. He went to [facility] SNF in June, but then admitted to [facility] with a new cva. He readmitted here in July and was denied skilled rehab by his ins plan and dc'd to home with hh per [facility]. The pt has been on service with [facility] since that time. He has home o2 per [facility] at 2liters as well as a rwalker and bath bench. His reports he had been up with sba and supervision for adl's until about 2 weeks ago. He has been growing weaker each day and has been too weak to stand.He has lost approx 20 lbs and is barely eating. EGD was negative. Hemo/ONC consult pending. Therapy evals recommend likely need for snf stay at [facility]. [facility] list provided to spouse. She indicates preferece for [facility]. They do not wish to go to [facility] again. Support provided. DC financial planner to initiate a referral to [facility] SNF.
--- NOTE | 2019-01-10 15:52 | NUR ---
FAXED REFERRAL TO [facility] LEFT MSG WITH [facility] IN ADM THAT ANTICIPATE DC FRI/SAT. DCP TO FOLLOW.
[2019-01-10 20:56] VITALS: BP 177/87
[2019-01-11] VITALS (117 sets, daily range): BP systolic 54–126; BP diastolic 27–92
--- NOTE | 2019-01-11 03:05 | NUR ---
PT HAD LARGE LOOSE STOOL AT START OF THE SHIFT, GIVEN SPONGE BATH AND NEW BEDDINGS, HAD DIFFICULTY FINDING RIGHT HEAD POSITION WHILE IN BED, DUE TO SLOUCHING FORWARD, CURRENTLY TOLERATING AROUND 15 DEGREES OF THE HEAD, LOOKS BETTER, HAD GOOD OUTPUT FROM THE LASIX, RIGHT ARM STILL SWOLLEN BUT BUT NOT PITTING, SCDS TO BLE, ON 2.5 L PER NC, ORAL CAR GIVEN, HARRIS CATH PATENT, HOURLY ROUNDING, MONITORED.
--- NOTE | 2019-01-11 03:11 | NUR ---
PT SWEATY, BS CHECK, 177. ALERT AND RESTING
[2019-01-11 06:06] LABS: BE(vivo) 4.9 mmol/L (-2 to +3); PO2 226.3 mmHg (80.0-100.0); sO2 99.3 % (92.0-98.0)
[2019-01-11 06:07] LABS: PCO2 80.1 mmHg (35.0-45.0); pH 7.246 (7.360-7.450)
[2019-01-11 06:10] LABS: ABSOLUTE RETIC COUNT 0.0502 10^6/uL; HEMATOCRIT 29.5 % (42.0-52.0); HEMOGLOBIN 9.4 gm/dL (14.0-18.0); MCH 26.2 pg (26.0-34.0); MCV 81.7 fL (80.0-100.0); OBSERVED RETIC COUNT 1.39 % (0.6-2.6); RBC 3.61 mil/uL (4.50-6.00); RDW 12.7 % (10.5-14.5); WBC 6.2 thou/uL (4.0-11.0)
[2019-01-11 06:28] LABS: HEMATOCRIT 28.4 % (42.0-52.0); HEMOGLOBIN 9.3 gm/dL (14.0-18.0); MCH 26.2 pg (26.0-34.0); MCHC 32.9 g/dL (28.0-37.0); MCV 79.6 fL (80.0-100.0); RBC 3.56 mil/uL (4.50-6.00); RDW 12.9 % (10.5-14.5); WBC 6.9 thou/uL (4.0-11.0)
[2019-01-11 06:40] LABS: ALBUMIN 2.5 g/dL (3.4-5.0); ANION GAP 21 mmol/L (7-16); BUN 23 mg/dL (7-18); CALCIUM 10.7 mg/dL (8.5-10.1); CHLORIDE 85 mmol/L (98-107); CO2 26 mmol/L (21-32); CREATININE 1.3 mg/dL (0.7-1.3); GLUCOSE 85 mg/dL (74-106); MAGNESIUM 2.9 mg/dL (1.8-2.4); POTASSIUM 4.3 mmol/L (3.5-5.1); SGOT < 5 U/L (15-37); SODIUM 132 mmol/L (136-145); TOTAL BILIRUBIN 0.5 mg/dL (<0.1-1.0); TOTAL PROTEIN 5.4 g/dL (6.4-8.2); TROPONIN-I 0.15 ng/mL (<0.06)
--- NOTE | 2019-01-11 06:41 | NUR ---
PT WAS TURNED LAST AROUND 0315, PT SLEEPY BUT WAKE UP AND ANSWERED WHEN TOLD HIM HE WILL BE CHECKED IF HE IS DIRTY, HE MOANED AND REQUESTED BLANKET, SWEATY, BLOOD SUGAR WAS CHECKED, 177. VITALS DONE AT 0342 AND WERE NORMAL. LAB CAME AROUND 0412 AND INFORMED THIS NURSE THAT HE WILL BE A REDRAW SINCE THEY CAN'T GET IT. ASSESSED IV FOR BLOOD DRAW BUT ENDED UP REDRESSING IT DUE TO LEAKING. THIS NURSE CLOCKED OUT FOR LUNCH AT 0454 BUT WAS INTERRUPTED AT 0510 WHEN CODE WAS CALLED FOR THE PATIENT. CODE IN PROGRESS WHEN THIS NURSE CAME TO THE ROOM.
--- NOTE | 2019-01-11 07:23 | NUR ---
PATIENT TRANSFERRED TO ICU DUE TO A DECLINE IN MEDICAL CONDITION. WILL AWAIT NEW OT ORDERS ONCE PATIENT IS MEDICALLY APPROPRIATE.
[2019-01-11 08:03] LABS: INR 1.8; PROTIME 18.6 Seconds (9.3-11.4)
--- NOTE | 2019-01-11 08:12 | NUR ---
Pt TRANSFERRED TO ICU. WILL PLACE ON HOLD AND AWAIT NEW ORDERS WHEN APPROPRIATE
[2019-01-11 08:13] LABS: HCO3 31.5 mmol/L (22.0-26.0); PCO2 49.6 mmHg (35.0-45.0); PO2 87.1 mmHg (80.0-100.0); pH 7.421 (7.360-7.450); sO2 96.7 % (92.0-98.0)
--- NOTE | 2019-01-11 08:35 | NUR ---
PT ARRIVED FROM WITH RT GIBSON, COAGULATING DRYING SUPERVISOR MEGHAN. CPR BEING PERFORMED EN ROUTE. WYATT ALBA CALLED IN ICU AT 0543. SEE CODE BLUE SHEET FOR EVENTS. PULSE REGAINED. PT CURRENTLY ON LEVOPHED AT 30 MCGS, AND DOPAMINE AT 10 MCG/MIN. UNRESPONSIVE CURRENTLY. CRITICAL RESULTS COMMUNICATED TO DR. TRAN AND BROKER AGR[employer]ODUCE RANJANA MARTINEZ. FAMILY AT [facility], UPDATED ABOUT CARE. REPORT GIVEN TO MARY AVILEZ.
[2019-01-11 08:49] LABS: SGPT 9595 U/L (30-65)
--- NOTE | 2019-01-11 09:00 | NUR ---
REPORT RECEIVED FROM PREVIOUS RN AT SHIFT CHANGE. NO SEDATION. PT TOTALLY UNRESPONSIVE ON VENT- BREATHING ONLY THE BREATHS DELIVERED BY VENT, RESPIRATIONS UNLABORED. SR, TITRATING VASOACTIVE GTTS TO KEEP MAP >60, OG PATENT WITH RED DRAINAGE, ABD SOFT, NONTENDER, HYPOACTIVE, HARRIS WITH CLEAR YELLOW URINE OUTPUT. TRAM ROGER FOR CARDIOLOGY, DR. TUBBS PRESENT. DR. PENA, DR. TRAN, DR. BLACK ALL PRESENT TO SEE PT. ALL PHYSICIANS SPOKE FRANKLY REGARDING PT CONDITION, DISCUSSED CODE STATUS WITH AND EITHER DAUGHTER, SISTER OR OTHER FAMILY MEMBERS DEPENDING ON WHOM IS IN THE ROOM AT THAT GIVEN TIME.
--- NOTE | 2019-01-11 10:19 | P ---
[facility] [place] [address] PROCEDURE REPORT Name: ADALBERTO RAMIREZ Room #: 245-P [facility] IN M.R.#: [id number] Admission: 01/09/19 Attend Phys: Shubham Trivedi Discharge: Date of : 40 Report #: [id number] THIS REPORT FOR: //name// CC: Jet Gallagher DO Shubham Trivedi MD DATE OF SERVICE: 01/10/2019 He is a patient of Dr. Jet Gallagher and Dr. Shubham Trivedi. INDICATION FOR PROCEDURE: This patient has a microcytic anemia and heme-negative stool. He is not iron deficient, but has been on iron replacement recently. The etiology of the microcytic anemia is not clear from this exam, so EGD is being performed to evaluate for possible upper GI sources of blood loss, though his BUN is normal. Informed consent for this procedure was obtained prior to the administration of any medication. The risks of the procedure, which include bleeding, perforation, infection, complications of sedation and the possibility I could miss something have been explained to the patient and he has indicated his consent by signing. Propofol was slowly titrated before and during this procedure for patient comfort by the Anesthesia Service. DESCRIPTION OF PROCEDURE: With the patient in the left lateral decubitus position and a bite block in place, the Olympus upper videoscope was introduced through the upper esophageal sphincter and advanced under direct visualization to the third portion of the duodenum without difficulty. Findings are noted on withdrawal of the scope. The visualized portions of the first and second portion of the duodenum appeared normal. Pylorus, normal mucosa. Antrum, normal mucosa. Body, in the body of the stomach, there are 3 small 1 to 1.5 cm areas of erythema. There is no ulceration involved in these areas, but there are spots of redness of uncertain etiology. I cannot take biopsies at this time as the patient's last dose of Plavix was yesterday, less than 24 hours ago. The cardia and fundus appeared normal. The scope was withdrawn into the esophagus. The Z-line is appropriately located at the top of the gastric folds and appears normal. The esophageal mucosa appeared normal throughout its entirety. I saw no evidence of any esophageal or gastric varices. The scope was withdrawn. The patient went to the recovery area in stable condition. He tolerated the procedure well. IMPRESSION: Three patches of mild erythema of the body of the stomach, uncertain etiology. Unable to biopsy as the patient has been on Plavix. [address] [address] PROCEDURE REPORT Name: ADALBERTO RAMIREZ Rocio Room #: 245-P [facility] IN [facility].#: [id number] Admission: 01/09/19 Attend Phys: Shubham Trivedi Discharge: Date of : 40 Report #: [id number] RECOMMENDATIONS: At this point, he is heme-negative stool. I do not think any further GI workup is indicated and instead I would recommend a Hematology consult for evaluation of possible bone marrow dysfunction. Thank you very much once again for allowing me to participate in his care. <ELECTRONICALLY SIGNED> By: Kailey Ramirez DO 01/11/19 1019 1423 2348 Kailey Ramirez DO /nt
--- NOTE | 2019-01-11 10:40 | NUR ---
VASO ACTIVE GTTS INCREASING AND VASOPRESSIN GTT ADDED, NOTING THE SAO2 PLETH READS INACCURATELY- DOWN INTO THE 70'S. UNABLE TO OBTAIN AN ACCURATE PLETH. NOTIFIED ALFONSO, RT AND PER COLLABORATION WITH RT FIO2 INCREASED TO 100%. PLETH SLOWLY INCREASING WITH AN IMPROVED WAVEFORM READING IN LOWER 90'S.
--- NOTE | 2019-01-11 10:43 | HC ---
[facility] [place] [address] CONSULTATION Name: JAMESADALBERTO E Room #: 245-P ADM IN M.R.#: [id number] Admission: 01/09/19 Attend Phys: Shubham Trivedi Discharge: Date of : 40 Report #: [id number] THIS REPORT FOR: //name// CC: Jet Stoutviolet Trivedi DATE OF SERVICE: 01/11/2019 HISTORY OF PRESENT ILLNESS: This is a 78-year-old male patient who was discussed with the home specialist and the nurses. I also talked to the family. This patient's neurological consultation is requested to prognosticate the patient from hypoxic encephalopathy. The patient's records were reviewed and he was down for unknown period of time. He was admitted with generalized weakness and was going to be worked up for the GI bleed. Presently, this patient is unresponsive and is unable to provide any history at all. REVIEW OF SYSTEMS: Predominantly from the records. This patient is unresponsive at the moment. He has a history of coronary artery disease and cardiac problem. He also has a prior history of CVA. He had seen Cardiology in the past. He has seen multiple consultants when he is here. He used to be on aspirin and Plavix, but that is on hold because of GI issues. A 14-point review of system is extensive and is positive as described above. He is also positive for GI bleed as I understand. He also has some peripheral edema. He has a history of diastolic heart failure. 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 PAST MEDICAL HISTORY: Positive for stroke. FAMILY HISTORY: Unremarkable. SOCIAL HISTORY: He does not smoke. PHYSICAL EXAMINATION: Limited. This patient is unresponsive. He has no reaction to the pupils. They are not fully dilated, but they are not reactive. Extraocular movements are not there on doll's eye movements. Basically, this patient is unresponsive, intubated and the further neurological examination is not possible. Blood pressure is 122/60, pulse is 80 and respiration is 18. IMPRESSION: Cardiac arrest. I discussed with the family that we will try to prognosticate this patient. It does take some time to do that. We will try to schedule an EEG since he is not on hypothermia protocol as I understand from the nurses as per Cardiology. Sometime along the line, he will also need a CT when he stabilizes. First test, we will see what EEG shows and then decide about [address] [address] CONSULTATION Name: ADALBERTO RAMIREZ Room #: 245-P [facility] IN ..#: [id number] Admission: 01/09/19 Attend Phys: Shubham Trivedi Discharge: Date of : 40 Report #: [id number] Templeton will follow up this patient with you from tomorrow. <ELECTRONICALLY SIGNED> By: Scooby Patel MD 01/11/19 1043 0936 1009 Scooby Patel MD /rosi
--- NOTE | 2019-01-11 13:28 | NUR ---
SPOKE WITH [facility] IN ADM AT [facility] THEY CAN ACCEPT PT CLINICALLY AT DC SHE WAS NOTIFIED PT NOW IN ICU AND DCP WILL KEEP HER UPDATED. DCP TO FOLLOW.
--- NOTE | 2019-01-11 15:00 | 2DMMODE ---
[facility] [place] [address] 2 D/M-MODE ECHOCARDIOGRAM Name: ADALBERTO RAMIREZ Room #: 245-P [facility] IN .R.#: [id number] Admission: 01/09/19 Attend Phys: Shubham Arechiga Discharge: Date of : 40 Date of Service: 01/11/19 1500 Report #: [id number] THIS REPORT FOR: //name// APPROVED REPORT Study performed: 01/11/2019 14:04:04 EXAM: Comprehensive 2D, Doppler, and color-flow Echocardiogram Patient Location: ICU Room #: [facility] Status: routine BSA: 1.83 HR: 75 bpm BP: 103/46 mmHg Other Information Study Quality: Poor/no apical windows. Patient flat on back on vent. Not all measurements taken. Indications Post code. Hx: CAD, stent, HTN,HLP,DM. 2D Dimensions IVSd: 13.19 (7-11mm) LVOT Diam: 21.62 (18-24mm) LVDd: 39.17 mm PWd: 12.81 (7-11mm) LVDs: 29.68 (25-40mm) Aortic Root: 42.17 mm Aortic Valve AoV Peak Peter.: 0.92 m/s AO Peak Gr.: 3.40 mmHg LVOT Max P.73 mmHg LVOT Max V: 0.66 m/s NATHAN Vmax: 2.62 cm2 Mitral Valve E/A Ratio: 0.8 MV Decel. Time: 366.13 ms MV E Max Peter.: 0.47 m/s MV A Peter.: 0.56 m/s MV PHT: 106.18 ms IVRT: 69.20 ms Pulmonary Valve PV Peak Peter.: 1.21 m/s PV Peak Gr.: 5.82 mmHg [facility] [place] [address] 2 D/M-MODE ECHOCARDIOGRAM Name: ADALBERTO RAMIREZ Room #: 245-P [facility] IN M.R.#: [id number] Admission: 01/09/19 Attend Phys: Shubham Arechiga Discharge: Date of : 40 Date of Service: 01/11/19 1500 Report #: [id number] Tricuspid Valve TR Peak Peter.: 2.26 m/s RAP Estimate: 10.00 mmHg TR Peak Gr.: 20.41 mmHg PA Pressure: 30.00 mmHg Left Ventricle The left ventricle is normal size. Mild global hypokinesis Mild concentric left ventricular hypertrophy. Left ventricular systolic function is mildly decreased. LVEF is 45%. Mild diastolic dysfunction is present (impaired relaxation pattern). Right Ventricle The right ventricle is normal size. Right ventricle is mildly hypokinetic. Atria The left atrium size is normal. Left atrium is not well visualized. The right atrium size is normal. Aortic Valve The aortic valve is normal in structure; mildly sclerotic. No aortic regurgitation is present. There is no aortic valvular stenosis. Mitral Valve Mitral valve leaflets are calcified. There is mitral annular calcification. There is no mitral valve regurgitation noted. No evidence of mitral valve stenosis. Tricuspid Valve The tricuspid valve is normal in structure. Trace to mild tricuspid regurgitation. Estimated PAP is 30mmHg. Pulmonic Valve The pulmonary valve is normal in structure. Mild pulmonic regurgitation. Great Vessels Aortic root is dilated at 4.2cm. IVC is normal in size and collapses <50% with inspiration. Pericardium There is no pericardial effusion. <Conclusion> [facility] [address] [place] [address] 2 D/M-MODE ECHOCARDIOGRAM Name: ADALBERTO RAMIREZ Room #: 245-P ADM IN M.R.#: [id number] Admission: 01/09/19 Attend Phys: Shubham Arechiga Discharge: Date of : 40 Date of Service: 01/11/19 1500 Report #: [id number] The left ventricle is normal size. LVEF is 45%. Mild global hypokinesis The right ventricle is normal size. Right ventricle is mildly hypokinetic. The left atrium size is normal. Left atrium is not well visualized. The aortic valve is normal in structure; mildly sclerotic. Mitral valve leaflets are calcified. There is mitral annular calcification. There is no mitral valve regurgitation noted. The tricuspid valve is normal in structure. Trace to mild tricuspid regurgitation. Estimated PAP is 30mmHg. The pulmonary valve is normal in structure. Mild pulmonic regurgitation. Aortic root is dilated at 4.2cm. There is no pericardial effusion. <ELECTRONICALLY SIGNED> By: Dong Lizarraga MD 01/11/19 1500 1500 1500 Dong Lizarraga MD /INF
--- NOTE | 2019-01-11 20:00 | NUR ---
SHIFT SUMMARY: AMIODARONE GTT, VASOPRESSIN GTT MAXED, NS IV FLUID ADDED, PHENYLEPHINE GTT UPP TO 200 MCG/MIN FOR BLOOD PRESSURE SUPPORT. REMAINS TOTALLY UNRESPONSIVE-EYES FIXED, DILATED, NO CORNEAL REFLEX, NO GAG, NO RESPONSE TO STERNAL RUB OR DEEP PAIN, NO PLANTAR REFLEX. DISCUSSED AND DEMONSTRATED TO AND FAMILY IN ROOM. NO SEDATION. APNEA TEST PERFORMED WITH ALFONSO,RT WITH PT HAVING A BREATH OR TWO AT 4.5 MINUTES. MTN CALLED THIS AM BY JUDITH GOVEA RN. MTN PRESENT IN AFTERNOON, UPDATED ON PT STATUS. FACE PALE, SR, NO BREATHS ABOVE VENT SET RATE, OG DRAINAGE IMPROVED TO BROWN, HARRIS WITH DECREASING URINE OUTPUT. REPORT TO ONCOMING RN.
[2019-01-11 20:44] LABS: BE(vivo) 2.1 mmol/L (-2 to +3); HCO3 27.2 mmol/L (22.0-26.0); PCO2 44.6 mmHg (35.0-45.0); PO2 71.3 mmHg (80.0-100.0); pH 7.403 (7.360-7.450); sO2 94.3 % (92.0-98.0)
--- NOTE | 2019-01-11 21:00 | NUR ---
SPOKE WITH REGARDING OF ABG RESULT.CURRENT HEMODYNAMIC AND /PRESSORS AND NO UO. SEE NEW ORDERS.
--- NOTE | 2019-01-11 21:27 | NUR ---
MTN called for an updates.
--- NOTE | 2019-01-11 21:58 | NUR ---
Assumed care of this pt at 1900. He is unresponsive. Absent of gag/corneal and coughing reflexes noted. No movement with any painful stimulation. He is currently on vent. He is on 100% of FiO2 to maintain his sat. Not sure if his O2 sat reading correctly due to poor perfusion and bad pleth. He is Max out of 4 pressors. Very distant heart tone noted. I have difficult time to obtain pulses due to high pressors used. I can palpated Right femoral and left femoral only. Left radial able to obtained per doppler. Previous RN notified regarding of above. Assessment completed. See electronic. Will continue to monitor him closely.
--- NOTE | 2019-01-11 23:53 | NUR ---
PT HAS NOT MAKE ANY URINE AFTER FLUID BOLUS. HE PROBABLY HAS OVER 1500 CC FROM MULTIPLE IV FLUID FROM PRESSORS. UPDATES REGARDING OF ABOVE. NEW ORDER OBTAINED.
[2019-01-12] VITALS (90 sets, daily range): BP systolic 83–172; BP diastolic 38–70
[2019-01-12 04:12] LABS: BE(vivo) -2.2 mmol/L (-2 to +3); HCO3 23.9 mmol/L (22.0-26.0); PCO2 46.8 mmHg (35.0-45.0); PO2 55.6 mmHg (80.0-100.0); pH 7.326 (7.360-7.450); sO2 86.6 % (92.0-98.0)
[2019-01-12 04:50] LABS: ABSOLUTE NEUTROPHILS 7.9 thou/uL (1.4-8.2); BASOPHILS 0.3 % (0.0-2.0); EOSINOPHILS 0.3 % (0.0-3.0); HEMATOCRIT 30.3 % (42.0-52.0); LYMPHOCYTES 13.5 % (24.0-44.0); MCH 26.5 pg (26.0-34.0); MCHC 33.1 g/dL (28.0-37.0); MCV 80.3 fL (80.0-100.0); PLATELET COUNT 136 thou/uL (150-400); POLYS 82.9 % (36.0-66.0); RBC 3.78 mil/uL (4.50-6.00); RDW 13.2 % (10.5-14.5); WBC 9.6 thou/uL (4.0-11.0)
[2019-01-12 05:04] LABS: ALBUMIN 1.7 g/dL (3.4-5.0); POTASSIUM 4.4 mmol/L (3.5-5.1); TOTAL BILIRUBIN 1.2 mg/dL (<0.1-1.0); TOTAL PROTEIN 3.9 g/dL (6.4-8.2)
[2019-01-12 05:15] LABS: CALCIUM 7.7 mg/dL (8.5-10.1)
--- NOTE | 2019-01-12 07:32 | NUR ---
Pt remains in critical conditions. No changes of neurological status from last assessment. GCS 3. Still max out on 4 pressors. No s/sx of ischemic limbs indicates. His edema has gotten worse. He has nearly 4000 cc of fluid in 12 hrs w/o making any urine. Gave lasix 10 mg once with no improvement. His and his daughter have visited. I have been communicated to his t/o the night and updated her regarding of his condtions. His daughter and his doesn't want to change any code status until after 48 hrs. No changes of cardiac rhythms. Report is given to oncoming nurse.
--- NOTE | 2019-01-12 09:32 | NUR ---
Nutrition: pt admit S/P asystole arrest. On vent/NPO x 2 days. Unresponsive with poor prognosis. No urine output. EEG today. No present plans for tube feeds although remains full code x 48 [address] least[address] Consult RD if desired.
--- NOTE | 2019-01-12 13:56 | EKG ---
[place] [address] [address] [address] [place] [place] [address] ELECTROCARDIOGRAM REPORT Name: ADALBERTO RAMIREZ Room #: 245-P ADM IN M.R.#: [id number] Admission: 01/09/19 Attend Phys: Shubham Trivedi Discharge: Date of : 40 Report #: [id number] THIS REPORT FOR: //name// [facility] Test Date: 2019-01-11 Test Time: 06:06:14 Pat Name: ADALBERTO RAMIREZ Department: Room: [facility] Gender: M Superintendent Local: JULIO CESAR : 1940 Requested By: Ines Gomez Order Number: [id number] MD: Rene Wyman Measurements Intervals [place] Rate: 60 P: -4 MO: 135 QRS: 60 QRSD: 145 T: -17 QT: 532 QTc: 532 Interpretive Statements Sinus rhythm Right bundle branch block Compared to ECG 01/09/2019 10:07:55 Right bundle-branch block now present First degree AV block no longer present Electronically Signed On 01-12-2019 13:56:39 CDT by Rene Wyman [email or web address] <ELECTRONICALLY SIGNED> By: Rene Wyman MD, [facility] 01/12/19 1356 0606 0606 Rene Wyman MD, [facility] /EPI
--- NOTE | 2019-01-12 14:15 | NUR ---
[facility] AND FAMILY BOTH ARE INQUIRING REGARDING EEG RESULTS. PAGED DR. GARCIA'S OFFICE NUMBER, THEN ANSWERING SERVICE. WHEN ASKED ANSWERING SERVICE TO PAGE HER, I WAS INSTRUCTED TO CALL HER DIRECT PHONE NUMBER. ANSWERING SERVICE REFUSED TO GIVE HER PHONE NUMBER. NOTIFIED FÁTIMA GEORGE, [employer] SERVICE ATTENDANT, THEN PER HER PHONE CALL REQUEST STILL UNABLE TO OBTAIN PHONE NUMBER. ABLE TO OBTAIN PHONE NUMBER, THEN LEFT MESSAGE. NO CALL RETURNED AT THIS TIME.
--- NOTE | 2019-01-12 14:25 | NUR ---
FAXED CLINICAL UPDATE TO [facility] H[facility] SPOKE WITH HUMZA IN ADM SHE RECEIVED UPDATE AND DCP TO F/U WITH FACILITY ON TUESDAY.
--- NOTE | 2019-01-12 15:11 | EKG ---
[address] [employer] [place] [address] ELECTROCARDIOGRAM REPORT Name: ADALBERTO RAMIREZ Room #: 245- ADM IN M.R.#: [id number] Admission: 01/09/19 Attend Phys: Shubham Trivedi Discharge: Date of : 40 Report #: [id number] THIS REPORT FOR: //name// 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[employer]r: RAE : 1940 Requested By: Radha Lua Order Number: [id number] MD: Rene Wyman Measurements Intervals [place] Rate: 76 P: 58 DC: 204 QRS: 45 QRSD: 94 T: 76 QT: 470 QTc: 529 Interpretive Statements Sinus rhythm Nonspecific ST segment abnormality Compared to ECG 01/09/2019 10:07:55 Nonspecific change in the ST and T-wave segments Electronically Signed On 01-12-2019 15:11:39 CDT by Rene Wyman [email or web address] <ELECTRONICALLY SIGNED> By: Rene Wyman MD, [facility] 01/12/19 1511 0 Rene Wyman MD, [facility] /EPI
[2019-01-12 16:09] LABS: GLOBULIN TOTAL 2.6 g/dL (2.2-3.9); M-SPIKE Not Observed g/dL (Not Observed)
--- NOTE | 2019-01-12 19:28 | NUR ---
SHIFT SUMMARY: NEURO STATUS UNCHANGED, TOTALLY NONRESPONSIVE TO DEEP PAIN, STERNAL RUB, NO CORNEAL REFLEX, GAG, COUGH OR PLANTAR REFLEX, EEG PERFORMED AT BEDSIDE. SR, CONTININUING VASOPRESSORS: LEVOPHED, DOPAMINE, VASOPRESSIN GTTS MAXED. DEVIN NEARLY TITRATED OFF, SBP PLUMMETS FROM 130'S TO LOW 80'S WHEN LOW DOSE DEVIN DC'D. NO BREATHS ABOVE VENT SET RATE, HAD DARK BROWN STOOL WITH TINY FLECKS CURDLED BLOOD. NO URINE OUTPUT. DR. BLANCO, DR. TRAN, DR. BARNARD, DR. SETH SPOKE WITH AND/OR PRESENT FAMILY MEMBERS. WHEN DR. BLANCO SPOKE WITH PT'S , SHE OPTED FOR A CHEMICAL CODE ONLY STATUS. AND OTHER FAMILY MEMBERS INTERMITTENTLY AT BEDSIDE. UPDATING, ANSWERING QUESTIONS TO SATISFACTION. [employer] PRESENT TODAY, UPDATED ON PT STATUS AT 0940. THEN AT 1420, CALL PLACED TO DR. BARNARD, EEG RESULTS GIVEN TO [employer]. DR. BARNARD, ALSO STATED SHE SPOKE WITH THE AND UPDATED HER ON TO EEG RESULTS. PT NOT PROGRESSING BASED ON NEUROLOGICAL STATUS.
--- NOTE | 2019-01-12 21:50 | NUR ---
Pt with no urine output since yesterday. Bladder non-palpate. Flushed irizarry with sterile water per aseptic technique w/o any difficulty. Notified , see new orders.
--- NOTE | 2019-01-12 22:11 | NUR ---
PT HAS NO OUTPUT SINCE YESTERDAY. BLADDER NON PALPATED. FLUSHED HARRIS WITH 20 STERIEL WATER W/O ANY DIFFICULT. BLADDER SCANNED AND IT WAS ZERO PER SCANNER. ADMIN LASIX AND ALBUMIN ORDERED.
--- NOTE | 2019-01-12 22:13 | NUR ---
PT WITH NO URINE OUTPUT SINCE YESTERDAY. BLADDER IS NON PALPATE. BP HAS IMPROVED AND ABLE TO WEAN DOWN SOME OF PRESSORS. NOTIFIED REGARDING OF ABOVE. SEE NEW ORDERS.
[2019-01-13] VITALS (96 sets, daily range): BP systolic 62–205; BP diastolic 30–87
[2019-01-13 05:08] LABS: ALBUMIN 2.3 g/dL (3.4-5.0); CALCIUM 6.9 mg/dL (8.5-10.1); CREATININE 2.6 mg/dL (0.7-1.3); MAGNESIUM 1.2 mg/dL (1.8-2.4); POTASSIUM 4.1 mmol/L (3.5-5.1); TOTAL BILIRUBIN 1.2 mg/dL (<0.1-1.0); TOTAL PROTEIN 3.9 g/dL (6.4-8.2)
[2019-01-13 05:21] LABS: BE(vivo) 1.2 mmol/L (-2 to +3); HCO3 26.3 mmol/L (22.0-26.0); PCO2 44.5 mmHg (35.0-45.0); PO2 65.1 mmHg (80.0-100.0); sO2 92.5 % (92.0-98.0)
--- NOTE | 2019-01-13 05:43 | NUR ---
[facility] CALLED FOR AN UPDATES THIS AM.
[2019-01-13 05:49] LABS: HEMATOCRIT 21.8 % (42.0-52.0); MCH 26.3 pg (26.0-34.0); MCHC 34.1 g/dL (28.0-37.0); PLATELET COUNT 87 thou/uL (150-400); RBC 2.83 mil/uL (4.50-6.00); RDW 13.4 % (10.5-14.5); WBC 10.7 thou/uL (4.0-11.0)
[2019-01-13 05:51] LABS: HEMOGLOBIN 7.4 gm/dL (14.0-18.0)
[2019-01-13 05:59] LABS: ABSOLUTE NEUTROPHILS 10.3 thou/uL (1.4-8.2); PLATELET ESTIMATE DECREASED
--- NOTE | 2019-01-13 06:18 | NUR ---
Pt remains unresponsive. GCS 3 with no gag/cough or corneal reflexes. Not response with any painful stimulation. No seizure activity in this shift. Not breathing over vent. ABG has improved, lactate came down to 5.69. BP had improved . I was able to titrated medication down but he still required very high dose of pressors. No s/sx of any ischemic limbs indicates. [place] patent, made 80 cc total after gave lasix last night. His BUN/Cr are increasing. His edema has gotten worse, he gained over 12 lbs within 24 hrs. Remaining in NSR. Low magnesium level this am, will replace as order. Pt's visited this am. Updates her regarding of his conditions. Offer emotional support. Continue to monitor any changes.
[2019-01-13 10:03] LABS: APTT 71.1 Seconds (24.5-32.8); FIBRINOGEN 168.5 mg/dL (210-360); INR 2.5; PROTIME 26.4 Seconds (9.3-11.4)
[2019-01-13 14:05] LABS: URINE BILIRUBIN NEGATIVE (Negative); URINE BLOOD 2+ (Negative); URINE CLARITY CLEAR; URINE COLOR YELLOW; URINE GLUCOSE-RANDOM* TRACE (Negative); URINE KETONES NEGATIVE (Negative); URINE LEUKOCYTES TRACE (Negative); URINE NITRITE NEGATIVE (Negative); URINE PROTEIN (DIPSTICK) TRACE (Negative); URINE UROBILINOGEN 0.2 E.U./dl (0.2-1.0)
[2019-01-13 14:12] LABS: AMORPHOUS URATES Few /LPF (None Seen); BACTERIA 1-9 Few /HPF (None Seen); COARSE GRANULAR CASTS 0-3 Few /LPF (None Seen); SQUAMOUS 0-3 Few /LPF (0-3); URINE RBC 3-10 Few /HPF (0-2); URINE WBC 6-15 Few /HPF (0-5)
[2019-01-13 17:46] LABS: HEMATOCRIT 24.1 % (42.0-52.0); HEMOGLOBIN 8.3 gm/dL (14.0-18.0)
--- NOTE | 2019-01-13 19:18 | NUR ---
PATIENT NOT PROGRESSING EVIDENT BY: APNEA TEST AND EEG REPEATED TODAY WITH DR SERVIN SPEAKING WITH THE FAMILY CONCERNING THE FINDINGS. VASOPRESIN AND LEVOPHED REMAIN AT MAX DOSES AND DOPAMINE WEANED TO 3MCG BP AND HEART RATE WHEN DOSAGE LOWERED. NO COUGH, GAG OR CORNEAL REFLEXES NOTED. HEMAGLOBIN GREATER THAN 8 AFTER UNIT OF PRBC'S. 325 CC OF URINE OUTPUT VIA HARRIS. REASSURANCE GIVEN TO FAMILY AND AWAITING ARRIVAL OF MORE FAMILY MEMBERS.
[2019-01-14] VITALS (67 sets, daily range): BP systolic 75–176; BP diastolic 25–68
--- NOTE | 2019-01-14 04:51 | NUR ---
Pt remains unresponsive. GCS 3. No gag/cough or corneal reflexes indicates. Not breathing above the vent. Still on 100% of FiO2 with high PEEP. Continue to be on high dose pf pressors. Able to came down on Levophed but still max on vasopressin. I have attempted to wean of dopanine but his HR has came down as well. Missive edema. He gained over 10 lbs in 24 hrs. His urine output has improved. He made 500 cc in this shift. Had 3 melena stool tonight. Lab obtained and pending results. and daughter visited last night. They are asking about palliative care and process of dying. I discussed with them almost 20 mins regarding of above. No decision yet. Still want to continue with care for now. Provide emotional support to pt and family.
[2019-01-14 04:55] LABS: HEMATOCRIT 23.9 % (42.0-52.0); HEMOGLOBIN 8.3 gm/dL (14.0-18.0); MCH 27.1 pg (26.0-34.0); MCHC 34.8 g/dL (28.0-37.0); MCV 77.9 fL (80.0-100.0); RBC 3.07 mil/uL (4.50-6.00); RDW 14.3 % (10.5-14.5); WBC 10.9 thou/uL (4.0-11.0)
[2019-01-14 05:12] LABS: ALBUMIN 1.9 g/dL (3.4-5.0); CREATININE 2.7 mg/dL (0.7-1.3); POTASSIUM 3.7 mmol/L (3.5-5.1); TOTAL BILIRUBIN 1.5 mg/dL (<0.1-1.0); TOTAL PROTEIN 3.8 g/dL (6.4-8.2)
--- NOTE | 2019-01-14 05:14 | NUR ---
Pt remains unresponsive. GCS 3. No gag/cough or corneal reflexes. On 100% of Oxygen with high PEEP. Not breathing above vent. Continue to be on high dose of pressors. Still max out on vasopressin but I was able to came own on levophed. On low dose of dopamine. Not able to wean if off due to bradycardia. Massive edema on UE worsen on Rt arm. He gained over 10 lbs within 24 hrs. He made 500 cc of urine in this shift. 3 melena stools tonight. Hb is stable. Pt and daughter visited last night. They are asking about palliative cares and dying process. I spent almost 20 mins to answered their questions. No decision have been made yet. Continue to provide emotional supports to pt and family.
--- NOTE | 2019-01-14 06:09 | NUR ---
MTN called for an updates.
--- NOTE | 2019-01-14 17:30 | NUR ---
Family requesting that ventilator and IV medications be withdrawn and the patient that the patient be allowed a natural . Dr Trivedi notified and orders noted. Family informed of process and verbalized understanding. Reassurance given.
--- NOTE | 2019-01-14 20:33 | NUR ---
Patient extubated at 1852, no resp effort noted, family at bedside. Monitor showed asystole at 1911 and patient pronouced by 2 RN's.
== END 2019-01-14 19:12 | DRG 208 ==
LOC: ER 10:07 → EROBS 12:01 → ICU 12:01 → 4E 12:01 → ICU 01-11 06:13
PROVIDERS: Emergency Medicine; Internal Medicine; Internal Medicine Hematology & Oncology; Nurse Practitioner; Nurse Practitioner Acute Care; Pediatrics; ADMIT Hospitalist
PROC: 0DJ08ZZ Inspection of Upper Intestinal Tract, Via Natural or Artificial Opening Endoscopic (ICD-10-PCS; principal; 2019-01-10)
PROC: 5A12012 Performance of Cardiac Output, Single, Manual (ICD-10-PCS; 2019-01-11)
PROC: 0BH17EZ Insertion of Endotracheal Airway into Trachea, Via Natural or Artificial Opening (ICD-10-PCS; 2019-01-11)
PROC: 5A1945Z Respiratory Ventilation, 24-96 Consecutive Hours (ICD-10-PCS; 2019-01-11)
PROC: 06HN33Z Insertion of Infusion Device into Left Femoral Vein, Percutaneous Approach (ICD-10-PCS; 2019-01-11)
PROC: B54CZZA Ultrasonography of Left Lower Extremity Veins, Guidance (ICD-10-PCS; 2019-01-11)
PROC: 30233N1 Transfusion of Nonautologous Red Blood Cells into Peripheral Vein, Percutaneous Approach (ICD-10-PCS; 2019-01-13)
DX: J96.21 Acute and chronic respiratory failure with hypoxia (principal); K72.00 Acute and subacute hepatic failure without coma; E87.1 Hypo-osmolality and hyponatremia; G93.1 Anoxic brain damage, not elsewhere classified; I50.32 Chronic diastolic (congestive) heart failure; E87.2 Acidosis; E46 Unspecified protein-calorie malnutrition; I69.351 Hemiplegia and hemiparesis following cerebral infarction affecting right dominant side; D61.818 Other pancytopenia; N17.9 Acute kidney failure, unspecified; J96.22 Acute and chronic respiratory failure with hypercapnia; Z66 Do not resuscitate; I46.9 Cardiac arrest, cause unspecified; I25.10 Atherosclerotic heart disease of native coronary artery without angina pectoris; E11.9 Type 2 diabetes mellitus without complications; E78.00 Pure hypercholesterolemia, unspecified; I48.91 Unspecified atrial fibrillation; I49.01 Ventricular fibrillation; I45.10 Unspecified right bundle-branch block; N40.0 Benign prostatic hyperplasia without lower urinary tract symptoms; K31.89 Other diseases of stomach and duodenum; I27.20 Pulmonary hypertension, unspecified; K29.70 Gastritis, unspecified, without bleeding; I11.0 Hypertensive heart disease with heart failure; D50.9 Iron deficiency anemia, unspecified; R74.0 Nonspecific elevation of levels of transaminase and lactic acid dehydrogenase [LDH]; I65.29 Occlusion and stenosis of unspecified carotid artery; K59.09 Other constipation; E78.5 Hyperlipidemia, unspecified; Z98.42 Cataract extraction status, left eye; Z98.41 Cataract extraction status, right eye; Z99.3 Dependence on wheelchair; Z95.5 Presence of coronary angioplasty implant and graft; Z79.02 Long term (current) use of antithrombotics/antiplatelets; Z79.84 Long term (current) use of oral hypoglycemic drugs; Z79.899 Other long term (current) drug therapy
CPT/HCPCS: 10078; 10084; 62110; 62900; 70005; 85076